=== PATIENT | male | born 1995 | race Caucasian/White ===

== ENCOUNTER 2018-10-10 22:27 | Emergency (ER) | payer OTHER ==
--- NOTE | 2018-10-10 22:56 | ER Document Report ---
ED Medical Screen (RME) - General Chief Complaint: Shortness Of Breath Stated Complaint: DIFFICULTY BREATHING Time Seen by Provider: 10/10/18 22:53 Notes: 22-year-old healthy male presents to the emergency department for shortness of breath that started about 30 minutes ago. He states he just arrived after a weekend in [place] and was in his usual state of health when he developed acute chest tightness and is having problems breathing. Denies history of asthma or any obstructive lung disease. No environmental exposures. No fevers or recent illness. Denies psychiatric history. EXAM: Well-appearing in no acute distress, no respiratory distress noted. Lungs clear to auscultation in all hernandez. Regular cardiac rate and rhythm no murmurs. I have greeted and performed a rapid initial assessment of this patient. A comprehensive ED assessment and evaluation of the patient, analysis of test results and completion of medical decision making process will be conducted by an additional ED providers. TRAVEL OUTSIDE OF THE [place] IN LAST 30 DAYS: No - Related Data Allergies/Adverse Reactions: No Known Drug Allergies Allergy (Verified 10/10/18 22:33) Physical Exam - Vital signs Vitals: Temp Pulse Resp BP Pulse Ox 99 F 85 30 H 165/92 H 100 10/10/18 22:31 10/10/18 22:31 10/10/18 22:31 10/10/18 22:31 10/10/18 22:31 Course - Vital Signs Vital signs: Temp Pulse Resp BP Pulse Ox 99 F 85 30 H 165/92 H 100 10/10/18 22:31 10/10/18 22:31 10/10/18 22:31 10/10/18 22:31 10/10/18 22:31
--- NOTE | 2018-10-10 23:20 | RADIOLOGY REPORT (SQ) ---
EXAM DESCRIPTION: XR CHEST 2 VIEWS COMPLETED DATE/TME: 10/10/2018 22:53 CLINICAL HISTORY: 22 years Male shortness of breath COMPARISON: None. FINDINGS: The cardiomediastinal silhouette appears unremarkable. No consolidating infiltrates or pleural effusions. No pneumothorax. IMPRESSION: No acute abnormality is identified.
--- NOTE | 2018-10-11 01:20 | ER Document Report ---
ED General - General Chief Complaint: Shortness Of Breath Stated Complaint: DIFFICULTY BREATHING Time Seen by Provider: 10/10/18 22:53 Notes: Patient is a 22-year-old male without chronic medical problems, presents with complaints of feeling of shortness of breath and difficulty moving air. Contrary to triage assessment the patient denies chest pain rather a feeling like it was difficult to expand his chest and breathe. States that his symptoms came on quite abruptly, were severe in nature. No obvious exacerbating or alleviating factor. Notes that he had some associated palpitations. States on the drive to the hospital he began to have numbness and tingling to his hands and feet. States that he was doing laundry when his symptoms started. States that he had a similar episode several weeks ago which was attributed to him taking supplements containing caffeine but his symptoms have not recurred since that time. States he overall feels much better at the time of my assessment relative to his presentation time without any intervention. Denies a known history of anxiety or panic attack. No history of DVT or pulmonary embolus. Denies cardiac history or early family history of cardiac disease. No trauma to the chest wall. TRAVEL OUTSIDE OF THE [place] IN LAST 30 DAYS: No - Related Data Allergies/Adverse Reactions: No Known Drug Allergies Allergy (Verified 10/10/18 22:33) Past Medical History - General Information source: Patient - Social History Smoking Status: Never Smoker Chew tobacco use (# tins/day): No Frequency of alcohol use: Rare Drug Abuse: None Lives with: Friend Family History: Reviewed & Not Pertinent Patient has suicidal ideation: No Patient has homicidal ideation: No Renal/ Medical History: Denies: Hx Peritoneal Dialysis Review of Systems - Review of Systems Notes: Constitutional: Negative for fever. HENT: Negative for sore throat. Eyes: Negative for visual changes. Cardiovascular: Negative for chest pain. Respiratory: Positive for shortness of breath. Gastrointestinal: Negative for abdominal pain, vomiting or diarrhea. Genitourinary: Negative for dysuria. Musculoskeletal: Negative for back pain. Skin: Negative for rash. Neurological: Negative for headaches, weakness or numbness. 10 point ROS negative except as marked above and in HPI. Physical Exam - Vital signs Vitals: Temp Pulse Resp BP Pulse Ox 99 F 85 30 H 165/92 H 100 10/10/18 22:31 10/10/18 22:31 10/10/18 22:31 10/10/18 22:31 10/10/18 22:31 Interpretation: Hypertensive, Tachypneic Notes: PHYSICAL EXAMINATION: GENERAL: Well-appearing, well-nourished and in no acute distress. HEAD: Atraumatic, normocephalic. EYES: Pupils equal round and reactive to light, extraocular movements intact, sclera anicteric, conjunctiva are normal. ENT: nares patent, oropharynx clear without exudates. Moist mucous membranes. NECK: Normal range of motion, supple without lymphadenopathy LUNGS: Breath sounds clear to auscultation bilaterally and equal. No wheezes rales or rhonchi. HEART: Regular rate and rhythm without murmurs, bedside echocardiogram without pericardial effusion or regional wall motion abnormality ABDOMEN: Soft, nontender, normoactive bowel sounds. No guarding, no rebound. No masses appreciated. EXTREMITIES: Normal range of motion, no pitting or edema. No cyanosis. NEUROLOGICAL: No focal neurological deficits. Moves all extremities spontaneously and on command. PSYCH: Appears somewhat anxious SKIN: Warm, Dry, normal turgor, no rashes or lesions noted. Course - Re-evaluation Re-evalutation: 10/11/18 01:19 Patient presents with an acute onset of shortness of breath followed by hyperventilation and paresthesias in his bilateral upper and lower extremities. Low clinical suspicion for ACS given clinical history, exam, EKG without ST elevations or depressions and no clinical risk factors. Do not believe troponin assay testing indicated given absence of any chest pain. PE also seems unlikely given clinical history, absence of tachycardia or dyspnea. Patient is PERC criteria negative. CXR without evidence of pneumothorax or pneumonia. No widened mediastinum. Aortic dissection also seems unlikely given history, symmetric pulses, CXR, and vitals. Bedside pericardial ultrasound does not demonstrate evidence of pericardial effusion, no regional wall motion of normalities. Patient's clinical history appears somewhat consistent with a panic episode and there is a strong family history of anxiety and panic. I advised patient that this is not a definitive diagnosis but that at this time I do not see any alternative cause for his symptoms. We have reviewed that given the diagnostic uncertainty of his presentation he should have a very low threshold to return to the emergency department. At this time will discharge with return precautions and follow-up recommendations. Verbal discharge instructions given a the bedside and opportunity for questions given. Medication warnings reviewed. Patient is in agreement with this plan and has verbalized understanding of return precautions and the need for primary care follow-up in the next 24-72 hours. - Vital Signs Vital signs: Temp Pulse Resp BP Pulse Ox 98.3 F 64 18 139/66 H 96 10/11/18 01:36 10/11/18 01:36 10/11/18 01:36 10/11/18 01:36 10/11/18 01:36 - Diagnostic Test Radiology reviewed: Image reviewed, Reports reviewed Radiology results interpreted by me: 10/11/18 01:18 Chest x-ray: No acute infiltrate or pneumothorax - EKG Interpretation by Me Additional EKG results interpreted by me: 10/11/18 01:18 Sinus rhythm, rate 79. No ST elevations or depressions. QTC is 441. Discharge - Discharge Clinical Impression: Shortness of breath Condition: Good Disposition: HOME, SELF-CARE Additional Instructions: As we discussed, the exact cause of your episode of shortness of breath is uncertain but could be related to anxiety or panic. Your chest x-ray, EKG, heart ultrasound, and physical examination are all unremarkable. Please return to the emergency department if you develop worsening of your symptoms, pass out, develop chest pain, or any other symptoms that are worrisome to you. Please follow-up with your primary care doctor within the next several days.
[2018-10-11 01:50] VITALS: BP 139/66
--- NOTE | 2018-10-11 22:16 | EKG REPORT ---
SEVERITY:- NORMAL ECG - SINUS RHYTHM : Confirmed by: Ina Ponce MD 11-Oct-2018 22:15:29
== END 2018-10-11 01:36 | disposition home or self-care (01) ==
LOC: ER 22:27
DX: R06.02 Shortness of breath (principal); R06.4 Hyperventilation; R20.2 Paresthesia of skin
CPT/HCPCS: 71046; 93005; 93010; 99284

== ENCOUNTER 2019-05-19 00:43 | Emergency (ER) | payer OTHER ==
[2019-05-19 03:36] VITALS: BP 122/70
== END 2019-05-19 05:29 | disposition left against medical advice (07) ==
LOC: ER 00:43
DX: Z53.21 Procedure and treatment not carried out due to patient leaving prior to being seen by health care provider (principal); R07.0 Pain in throat; R51 Headache